=== PATIENT | male | born 1975 | race American Indian/Alaskan Native ===

== ENCOUNTER 2017-12-06 20:27 | Emergency (ER) | payer OTHER ==
[2017-12-06] MEDS ORDERED: TYLENOL ONE (22:45)
[2017-12-06] MEDS ORDERED: TYLENOL PO ONE (22:48)
[2017-12-06 23:13] LABS: Hematocrit 46.7 % (35.5-45.6); Hemoglobin 15.7 gm/dl (11.8-15.2); Mean Corpuscular HGB Conc 34 % (32-34); Mean Corpuscular Hemoglobin 30 pg (28-32); Mean Corpuscular Volume 89 fl (84-94); Platelet Count 126 K/mm3 (140-440); Red Blood Count 5.26 M/mm3 (3.65-5.03)
[2017-12-07 00:05] LABS: Basophils % (Manual) 0 % (0.0-1.8); Eosinophils % (Manual) 0 % (0.0-4.3); RBC Morphology Normal; Total Cells Counted 100
[2017-12-07 00:06] LABS: BUN/Creatinine Ratio 13; Blood Urea Nitrogen 14 mg/dL (9-20); Calcium 8.8 mg/dL (8.4-10.2); Hemolysis Index 5
--- NOTE | 2017-12-07 00:40 | Emergency Department Report ---
HPI - General Chief Complaint: Sore Throat Time Seen by Provider: 12/07/17 00:39 - HPI HPI: This is a 41-year-old male here reports diarrhea 2 days within 24 hours. Diarrhea twice today. He said he did not pass out but he almost passed out at work yesterday. Triage note said the patient passed out yesterday. He said he hasn't been feeling good and that he caught whatever he has from his boss. Reports body ache and sore throat 9 out of 10 worse with swallowing and talking. No alleviating factors. Reports fever and chills. Denies any vomiting but reports some nausea. Denies any abdominal or back pain. Denies any shortness of breath or chest pain. ED Past Medical Hx - Past Medical History Previous Medical History?: No - Surgical History Past Surgical History?: No - Family History Family history: hypertension - Social History Smoking Status: Current Every Day Smoker Substance Use Type: None - Medications Home Medications: Home Medications Medication Instructions Recorded Confirmed Last Taken Type Ibuprofen [Motrin] 600 mg PO Q6H PRN #16 tablet 12/07/17 Unknown Rx Promethazine [Phenergan TAB] 25 mg PO Q6HR PRN #12 tab 12/07/17 Unknown Rx ED Review of Systems ROS: Stated complaint: FLU SYMPTOMS Other details as noted in HPI Comment: All other systems reviewed and negative Constitutional: chills, fever Eyes: denies: eye pain, eye discharge ENT: throat pain. denies: ear pain, dental pain, hearing loss, congestion Respiratory: no symptoms reported Cardiovascular: denies: chest pain, palpitations, dyspnea on exertion, edema, syncope, paroxysmal nocturnal dyspnea Gastrointestinal: nausea, diarrhea. denies: abdominal pain, vomiting, constipation, hematemesis, melena, hematochezia Genitourinary: denies: dysuria, hematuria Musculoskeletal: myalgia. denies: back pain, joint swelling, arthralgia Skin: denies: rash Neurological: other (report feeling dizzy and almost passed out at work yesterday). denies: headache, weakness, numbness, paresthesias, confusion, abnormal gait Physical Exam - Physical Exam Vital Signs: Vital Signs 12/06/17 22:10 Temperature 100.9 F H Pulse Rate 89 Respiratory 18 Rate Blood Pressure 123/82 O2 Sat by Pulse 100 Oximetry Vital Signs 12/06/17 12/07/17 22:10 02:48 Temperature 100.9 F H 99.3 F Pulse Rate 89 64 Respiratory 18 16 Rate Blood Pressure 123/82 Blood Pressure 106/65 [Left] O2 Sat by Pulse 100 98 Oximetry General: This is a 41-year-old male well-nourished well-developed and nontoxic in appearance but he appears ill. Physical Exam: Head: Normocephalic, atraumatic, no abrasion, no bruising and no contusion. Eyes: Biateral pupils equal and reactive to light, bilateral EOM intact.. Bilateral conjunctival and sclera without injection, normal accommodation. No nystagmus Mouth: Moist, positive pharyngeal exudate with erythema. No peritonsillar abscesses. Uvula is midline and oral airways patent. No drooling noted. Ears: Bilateral TMs pearly brian .Bilateral EAC without any redness swelling or drainage. No mastoid bone tenderness Nose: Bilateral nasal mucosa normal ,Maxillary and frontal sinuses non-tender to palpate. Neck: Supple, positive anterior Cervical adenopathy, full range of motion and no C-spine tenderness. No swelling or tracheal deviation normal reflexes Cardiovascular: S1, S2. Regular rate and rhythm. No murmur. Capillary refill is less then 3 seconds. Lungs: Clear to auscultate bilaterally. No rhonchi, wheezes or rales. No chest wall tenderness. No chest contusion. No bruising to chest. MSK: Strength 5/5 in all extremities. No joint deformity or crepitus. Normal inspection. Full range of motion to all extremities. No laceration, abrasion or ecchymotic area noted. Bilateral knees nontender to palpate. Abdomen: Non-tender to palpate in all quadrants, no guarding or rebound tenderness, positive bowel sounds in all quadrants. No CVA tenderness. No hernia, bruit or mass. No rigidity or distention. Extremities: No clubbing, cyanosis or edema. +2 pulses. No neurovascular compromise Skin: Clean, dry and intact. No rash or lesions. Neurological: GCS at 15, Pt is alert and oriented 3 speech is clear. 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 Normal gait. Negative Romberg and no pronator drift. Normal Reflexes. No motor or sensory deficit Back: No vertebral tenderness, no paraspinal tenderness. Negative SLR bilaterally, no saddle anesthesia. Ambulates without any difficulties Psych: Normal mood and behavior ED Course Vital Signs 12/06/17 22:10 Temperature 100.9 F H Pulse Rate 89 Respiratory 18 Rate Blood Pressure 123/82 O2 Sat by Pulse 100 Oximetry Vital Signs 12/06/17 12/07/17 22:10 02:48 Temperature 100.9 F H 99.3 F Pulse Rate 89 64 Respiratory 18 16 Rate Blood Pressure 123/82 Blood Pressure 106/65 [Left] O2 Sat by Pulse 100 98 Oximetry - Reevaluation(s) Reevaluation #1: 12/07/17 00:48 Patient received Tylenol 650 mg 2 tablet in triage area for sore throat. Reevaluation #2: 12/07/17 02:49 Patient received Motrin 800 mg by mouth for additional pain. Deltasone 60 mg by mouth and he was orally challenged and emergency room with water and juice and tolerated well without any diarrhea or nausea or vomiting. Patient is also given Zofran 8 mg ODT and is not experiencing any nausea or vomiting. He said he feels better. Patient's strep test is positive. Reevaluation #3: 12/07/17 02:57 Patient given Bicillin LA 1.2 million units IM ED Medical Decision Making - Lab Data Result diagrams: 12/06/17 22:51 12/06/17 22:51 Lab Results 12/06/17 12/06/17 12/06/17 Range/Units 22:25 22:51 22:51 WBC 6.0 (4.5-11.0) K/mm3 RBC 5.26 H (3.65-5.03) M/mm3 Hgb 15.7 H (11.8-15.2) gm/dl Hct 46.7 H (35.5-45.6) % MCV 89 (84-94) fl MCH 30 (28-32) pg MCHC 34 (32-34) % RDW 14.0 (13.2-15.2) % Plt Count 126 L (140-440) K/mm3 [place] % (Auto) Government Property Inspector Add Manual Diff Complete Total Counted 100 Seg Neuts % (Manual) 68.0 (40.0-70.0) % Band Neutrophils % 0 % Lymphocytes % (Manual) 18.0 (13.4-35.0) % Reactive Lymphs % (Man) 0 % Monocytes % (Manual) 14.0 H (0.0-7.3) % Eosinophils % (Manual) 0 (0.0-4.3) % Basophils % (Manual) 0 (0.0-1.8) % Metamyelocytes % 0 % Myelocytes % 0 % Promyelocytes % 0 % Blast Cells % 0 % Nucleated RBC % Not Reportable Seg Neutrophils # Man 4.1 (1.8-7.7) K/mm3 Band Neutrophils # 0.0 K/mm3 Lymphocytes # (Manual) 1.1 L (1.2-5.4) K/mm3 Abs React Lymphs (Man) 0.0 K/mm3 Monocytes # (Manual) 0.8 (0.0-0.8) K/mm3 Eosinophils # (Manual) 0.0 (0.0-0.4) K/mm3 Basophils # (Manual) 0.0 (0.0-0.1) K/mm3 Metamyelocytes # 0.0 K/mm3 Myelocytes # 0.0 K/mm3 Promyelocytes # 0.0 K/mm3 Blast Cells # 0.0 K/mm3 WBC Morphology Not Reportable Hypersegmented Neuts Not Reportable Hyposegmented Neuts Not Reportable Hypogranular Neuts Not Reportable Smudge Cells Not Reportable Toxic Granulation Not Reportable Toxic Vacuolation Not Reportable Dohle Bodies Not Reportable Pelger-Huet Anomaly Not Reportable Helen Rods Not Reportable Platelet Estimate Not Reportable Clumped Platelets Not Reportable Plt Clumps, EDTA Not Reportable Large Platelets Not Reportable Giant Platelets Not Reportable Platelet Satelliting Not Reportable Plt Morphology Comment Not Reportable RBC Morphology Normal Dimorphic RBCs Not Reportable Polychromasia Not Reportable Hypochromasia Not Reportable Poikilocytosis Not Reportable Anisocytosis Not Reportable Microcytosis Not Reportable Macrocytosis Not Reportable Spherocytes Not Reportable Pappenheimer Bodies Not Reportable Sickle Cells Not Reportable Target Cells Not Reportable Tear Drop Cells Not Reportable Ovalocytes Not Reportable Helmet Cells Not Reportable [place] Bodies Not Reportable [place] Rings Not Reportable [place] Cells Not Reportable Bite Cells Not Reportable Crenated Cell Not Reportable Elliptocytes Not Reportable Acanthocytes (Spur) Not Reportable Rouleaux Not Reportable Hemoglobin C Crystals Not Reportable Schistocytes Not Reportable Malaria parasites Not Reportable José Miguel Bodies Not Reportable Hem Pathologist Commnt No Sodium 135 L (137-145) mmol/L Potassium 4.1 (3.6-5.0) mmol/L Chloride 95.1 L (98-107) mmol/L Carbon Dioxide 25 (22-30) mmol/L Anion Gap 19 mmol/L BUN 14 (9-20) mg/dL Creatinine 1.1 (0.8-1.5) mg/dL Estimated GFR > 60 ml/min BUN/Creatinine Ratio 13 % Glucose 95 (75-100) mg/dL Calcium 8.8 (8.4-10.2) mg/dL Group A Strep Rapid Positive A (Negative) Strep culture pending - EKG Data -: EKG Interpreted by Me (attending physician) EKG shows normal: sinus rhythm (73 bpm) - EKG Data Interpretation: no acute changes - Medical Decision Making ED course: She is here complaining of sore throat and he thinks he got something from his boss. He said he had almost passed out at work yesterday but did not pass out. Patient reported that he has diarrhea 2 in 24 hours. Reports generalized weakness and sore throat at 9 out of 10 without any drooling. Physical finding for exudates to oropharynx with erythema and swelling. No peritonsillar abscess noted. Patient with enlarged lymph nodes, cervical anterior chain, fever and chills. Laboratory findings with positive strep A. CBC stable, BMP stable except sodium is 135 which is mildly decreased. Patient was able to tolerate oral liquids to include juice emergency room without any difficulties. EKG is stable. I discussed patient that he has strep throat and will be treated with Bicillin which is a long-acting penicillin and will sustain his body for at least 10 days so he will experience sore throat for over 72 hours and it will get better eventually. I discussed with him that he needs to take Motrin as prescribed for fever and/or sore throat. I discussed lab work and EKG results with him. Patient is stable and he voiced understanding of discharge instruction. Patient initially received Tylenol 650 mg by mouth for fever and sore throat in triage area. Patient received Motrin 800 mg by mouth for additional pain. Deltasone 60 mg by mouth. He was given Bicillin LA 1.2 million units IM. No adverse reaction Patient is also given Zofran 8 mg ODT and is not experiencing any nausea or vomiting. He said he feels better. Critical care attestation.: If time is entered above; I have spent that time in minutes in the direct care of this critically ill patient, excluding procedure time. ED Disposition Clinical Impression: Nausea and vomiting in adult, Strep sore throat, Near syncope, Fever chills Diarrhea Qualifiers: Diarrhea type: unspecified type Qualified Code(s): R19.7 - Diarrhea, unspecified Disposition: - TO HOME OR SELFCARE Is pt being admited?: No Does the pt Need Aspirin: No Condition: Stable Instructions: Near Syncope (ED), Nutrition Tips for Relief of Diarrhea (ED), Acute Nausea and Vomiting (ED), Acute Diarrhea (ED), Strep Throat (ED) Additional Instructions: Please increase her fluid intake to include water and/or Gatorade to prevent dehydration and relief fever. Avoid drinking any carbonated or acidic beverages. He received Bicillin injection and emergency room which will take care of your strep. He only needed one time injection. Take Motrin for fever and or sore throat. Take phenergan for nausea and or vomiting but please do not drive or operate heavy machinery while taking meds Rest for 48 hours Follow-up with primary care physician in 2-3 days and if you do not have one he can follow up at [facility] If you have worsening symptoms, return to the emergency room. Prescriptions: Ibuprofen [Motrin] 600 mg PO Q6H PRN #16 tablet PRN Reason: Fever and/or pain Promethazine [Phenergan TAB] 25 mg PO Q6HR PRN #12 tab PRN Reason: Nausea Referrals: PRIMARY CARE,MD [Primary Care Provider] - 2-3 Days [facility] [Outside] - 2-3 Days Forms: Work/School Release Form(ED)
[2017-12-07] MEDS ORDERED: ZOFRAN ODT PO ONE (00:41)
[2017-12-07] MEDS ORDERED: MOTRIN PO ONE (00:41)
[2017-12-07] MEDS ORDERED: DELTASONE PO ONE (00:41)
[2017-12-07 02:48] VITALS: BP 106/65
[2017-12-07] MEDS ORDERED: BICILLIN L-A IM ONE (02:57)
== END 2017-12-07 03:45 | disposition home or self-care (01) ==
LOC: ED 20:27
DX: J02.0 Streptococcal pharyngitis (principal); R19.7 Diarrhea, unspecified; R55 Syncope and collapse; R11.2 Nausea with vomiting, unspecified
CPT/HCPCS: 36415; 80048; 85007; 85025; 87430; 93005; 93010; 96372; 99283; J0561; J7512; Q0162